=== PATIENT | male | born 1990 | race Caucasian/White ===

== ENCOUNTER 2017-08-04 14:20 | Emergency (ER) | payer SELFPAY ==
--- NOTE | 2017-08-04 19:25 | Emergency Department Report ---
- General Chief complaint: Skin Rash Stated complaint: RASH ALL OVER BODY Time Seen by Provider: 08/04/17 19:19 Source: patient, family Mode of arrival: Ambulatory Limitations: No Limitations - History of Present Illness Initial comments: 26-year-old male comes to the emergency room stating he's has a rash that started on 07/30/2017 on his left arm and now has spread to his torso, both arms, both lower extremities and face. Patient reports that the rash is very itchy. Patient reports that he has had no fever or chills, no nausea no vomiting, not up-to-date on his vaccines. 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 He denies any out side work. He is taking no medication to help relieve his itchiness. Patient reports he has no known drug allergies healthy no past medical history takes no chronic medications and has no primary care provider. MD complaint: rash -: Gradual, days(s) (6) Tetanus Up to Date: no Location: face, chest, LUE, RUE, LLE, RLE Severity: moderate Quality: other (pruritic) Consistency: constant Improves with: none Worsens with: none Context: none Associated symptoms: itching Treatments Prior to Arrival: none - Related Data Previous Rx's Medication Instructions Recorded Last Taken Type Prednisone [predniSONE 10 mg 10 mg PO .TAPER #1 tab.ds.pk 08/04/17 Unknown Rx (6-Day Pack, 21 Tabs)] hydrOXYzine HCL [Atarax] 25 mg PO Q6HR PRN #20 tablet 08/04/17 Unknown Rx Allergies Allergy/AdvReac Type Severity Reaction Status Date / Time No Known Allergies Allergy Unverified 08/04/17 19:35 Abscess Boil HPI - HPI Chief Complaint: Skin Rash Stated Complaint: RASH ALL OVER BODY Time Seen by Provider: 08/04/17 19:19 Home Medications: Previous Rx's Medication Instructions Recorded Last Taken Type Prednisone [predniSONE 10 mg 10 mg PO .TAPER #1 tab.ds.pk 08/04/17 Unknown Rx (6-Day Pack, 21 Tabs)] hydrOXYzine HCL [Atarax] 25 mg PO Q6HR PRN #20 tablet 08/04/17 Unknown Rx Allergies/Adverse Reactions: Allergies Allergy/AdvReac Type Severity Reaction Status Date / Time No Known Allergies Allergy Unverified 08/04/17 19:35 ED Review of Systems ROS: Stated complaint: RASH ALL OVER BODY Other details as noted in HPI Constitutional: denies: chills, fever Eyes: denies: eye pain, eye discharge, vision change ENT: denies: ear pain, throat pain Respiratory: denies: cough, shortness of breath, wheezing Cardiovascular: denies: chest pain, palpitations Endocrine: no symptoms reported Gastrointestinal: denies: abdominal pain, nausea, diarrhea Genitourinary: denies: urgency, dysuria Musculoskeletal: denies: back pain, joint swelling, arthralgia Skin: rash Neurological: denies: headache, weakness, paresthesias Psychiatric: denies: anxiety, depression Hematological/Lymphatic: denies: easy bleeding, easy bruising ED Past Medical Hx - Past Medical History Previous Medical History?: No Hx Diabetes: No - Surgical History Past Surgical History?: No - Social History Smoking Status: Never Smoker Substance Use Type: None - Medications Home Medications: Home Medications Medication Instructions Recorded Confirmed Last Taken Type Prednisone [predniSONE 10 mg 10 mg PO .TAPER #1 tab.ds.pk 08/04/17 Unknown Rx (6-Day Pack, 21 Tabs)] hydrOXYzine HCL [Atarax] 25 mg PO Q6HR PRN #20 tablet 08/04/17 Unknown Rx ED Physical Exam - General Limitations: No Limitations General appearance: alert - Head Head exam: Present: atraumatic, normocephalic - Eye Eye exam: Present: normal appearance - ENT ENT exam: Present: mucous membranes moist - Neck Neck exam: Present: normal inspection, full ROM - Respiratory Respiratory exam: Present: normal lung sounds bilaterally. Absent: respiratory distress, wheezes - Cardiovascular Cardiovascular Exam: Present: regular rate, normal rhythm. Absent: systolic murmur, diastolic murmur, rubs, gallop - GI/Abdominal GI/Abdominal exam: Present: soft, normal bowel sounds - Extremities Exam Extremities exam: Present: full ROM. Absent: tenderness - Back Exam Back exam: Present: full ROM. Absent: tenderness - Neurological Exam Neurological exam: Present: alert, oriented X3 - Psychiatric Psychiatric exam: Present: normal affect, normal mood - Skin Skin exam: Present: rash, erythema ED Course Vital Signs 08/04/17 17:04 Temperature 97.9 F Pulse Rate 64 Respiratory 20 Rate Blood Pressure 113/50 Blood Pressure 113/50 [Right] O2 Sat by Pulse 94 Oximetry - Reevaluation(s) Reevaluation #1: 08/04/17 21:09 Rash has improved some itching has decreased some. ED Medical Decision Making - Medical Decision Making Patient has been evaluated with this provider fast track. Discussed the patient that I would give him a shot of dexamethasone 8 mg as well as Benadryl 50 mg IM. Discussed patient I will discharge him on a Medrol Dosepak and Atarax. Discussed the patient that I'll give him a few days off of work. Discussed patient I will refer him to dermatology for further evaluation. Patient verbalized understanding. Critical care attestation.: If time is entered above; I have spent that time in minutes in the direct care of this critically ill patient, excluding procedure time. ED Disposition Clinical Impression: Rash in adult Disposition: DC-01 TO HOME OR SELFCARE Is pt being admited?: No Does the pt Need Aspirin: No Condition: Stable Instructions: Acute Rash (ED) Additional Instructions: Please take medication as prescribed. Follow-up with the angiographer for further evaluation. Prescriptions: hydrOXYzine HCL [Atarax] 25 mg PO Q6HR PRN #20 tablet PRN Reason: Itching Prednisone [predniSONE 10 mg (6-Day Pack, 21 Tabs)] 10 mg PO .TAPER #1 tab.ds.pk Referrals: PRIMARY CARE, [Primary Care Provider] - 3-5 Days [facility] [Provider Group] - 3-5 Days [facility] [Provider Group] - 3-5 Days Forms: Work/School Release Form(ED), Accompanied Note
[2017-08-04] MEDS ORDERED: DECADRON IM ONE (19:35)
[2017-08-04] MEDS ORDERED: BENADRYL IV ONE (19:35)
[2017-08-04] MEDS ORDERED: BENADRYL IM ONE (19:46)
[2017-08-04 21:04] VITALS: BP 107/61
== END 2017-08-04 21:14 | disposition home or self-care (01) ==
LOC: ED 14:20
DX: R21 Rash and other nonspecific skin eruption (principal)
CPT/HCPCS: 96372; 99282; J1100; J1200